=== PATIENT | male | born 1990 | race Caucasian/White ===

== ENCOUNTER 2023-08-28 13:18 | Inpatient (IN) | payer OTHER ==
[2023-08-28 13:48] VITALS: BMI 29.0
[2023-08-28] MEDS ORDERED: LOPERAMIDE HCL 2 MG CAPSULE PO PRN (14:49)
[2023-08-28] MEDS ORDERED: BISMUTH SUBSALICYLATE 524 MG/30 ML PO PRN (14:49)
[2023-08-28] MEDS ORDERED: MAGNESIUM HYDROX 2400MG/30ML ORAL SUSPENSION 30 ML CUP PO PRN (14:49)
[2023-08-28] MEDS ORDERED: IBUPROFEN 400 MG TABLET (FP) PO PRN (14:49)
[2023-08-28] MEDS ORDERED: guaiFENesin 600 MG TABLET.ER (FP) PO PRN (14:49)
[2023-08-28] MEDS ORDERED: BENZOCAINE/MENTHOL (CHLORASEPTIC ) LOZENGE MM PRN (14:49)
[2023-08-28] MEDS ORDERED: IBUPROFEN 600 MG TABLET (FP) PO PRN (14:49)
[2023-08-28] MEDS ORDERED: POLYETHYLENE GLYCOL (HEALTHYLAX) 3350 17 GM PACKET PO PRN (14:49)
[2023-08-28] MEDS ORDERED: DICYCLOMINE HCL 10 MG CAPSULE PO PRN (14:49)
[2023-08-28] MEDS ORDERED: chlordiazePOXIDE HCL 25 MG CAPSULE PO PRN (14:49)
[2023-08-28] MEDS ORDERED: MAG HYDROX/AL HYDROX/SIMETH 30 ML UNIT-DOSE CUP PO PRN (14:49)
[2023-08-28] MEDS ORDERED: NALOXONE HCL (KLOXXADO) 8 MG SPRAY NS PRN (14:49)
[2023-08-28] MEDS ORDERED: ONDANSETRON *ODT* 4 MG TABLET SL PRN (14:49)
[2023-08-28] MEDS ORDERED: NALOXONE HCL 0.4 MG/ML VIAL IM PRN (14:49)
[2023-08-28] MEDS ORDERED: ACETAMINOPHEN 325 MG TABLET (FP) PO PRN (14:49)
[2023-08-28] MEDS ORDERED: BENZONATATE 200 MG CAPSULE PO PRN (14:49)
[2023-08-28] MEDS: chlordiazePOXIDE HCL 25 MG CAPSULE PO SCH (19:07)
[2023-08-28] MEDS: THIAMINE 100 MG TABLET PO SCH (23:27)
[2023-08-28] MEDS: METHOCARBAMOL 500 MG TABLET PO PRN (23:27)
[2023-08-28] MEDS: MELATONIN 5 MG TABLETS PO SCH (23:34)
[2023-08-29] MEDS ORDERED: predniSONE 40 MG, predniSONE 10 MG PO SCH (10:00)
[2023-08-29] MEDS: predniSONE 10 MG TABLET (UD) PO SCH (10:45)
[2023-08-29] MEDS: NAPROXEN 500 MG TABLET PO SCH (10:45)
[2023-08-29] MEDS: PRENATAL VITAMINS W/ FOLIC ACID TABLET (FP) PO SCH (10:45)
[2023-08-29 11:03] LABS: CHLORIDE 107 mmol/L (98-107); POTASSIUM 3.8 mmol/L (3.5-5.1); SODIUM 139 mmol/L (136-145)
[2023-08-29 11:06] LABS: ALBUMIN 2.9 g/dl (3.4-5.0); ANION GAP 5 mmol/L (4-13); BLOOD UREA NITROGEN 14.3 mg/dL (7-18); CALCIUM 8.6 mg/dL (8.5-10.1); CO2 27 mmol/L (21-32)
[2023-08-29 11:07] LABS: GLUCOSE,RANDOM 155 mg/dL (74-106); HEMOGLOBIN 15.2 GM/dL (11.7-16.9); MCH 29.8 pg (25.7-33.7); MCHC 33.8 g/dl (32.0-35.9); MEAN CELL VOLUME 88.1 fl (80-96); MEAN PLT VOLUME 8.5 fl (7.5-11.1); PLATELET COUNT 199 10^3/uL (134-434); RBC 5.11 M/mm3 (4.00-5.60); RDW 13.4 % (11.9-15.9); WHITE BLOOD COUNT 6.7 K/mm3 (4.0-10.0)
[2023-08-29 11:09] LABS: SGOT/AST 10 U/L (15-37); SGPT/ALT 19 U/L (13-61)
[2023-08-29 11:11] LABS: BILIRUBIN,TOTAL 0.6 mg/dL (0.2-1); TOT PROT 5.6 g/dl (6.4-8.2)
[2023-08-29 11:12] LABS: ALK PHOS 49 U/L (45-117)
[2023-08-30] MEDS: chlordiazePOXIDE HCL 25 MG CAPSULE PO SCH (05:50)
[2023-08-30] MEDS: amLODIPine BESYLATE 5 MG TABLET (FP) PO SCH (10:58)
[2023-08-30] MEDS: hydrOXYzine PAMOATE 25 MG CAPSULE (FP) PO PRN (17:10)
[2023-08-31] MEDS: chlordiazePOXIDE HCL 10 MG CAPSULE PO SCH (05:35)
[2023-08-31] MEDS: chlordiazePOXIDE 5 MG CAPSULE PO SCH (18:29)
[2023-08-31] MEDS: chlordiazePOXIDE HCL 10 MG CAPSULE PO PRN (22:25)
[2023-09-01] MEDS: chlordiazePOXIDE HCL 10 MG CAPSULE PO SCH (05:53)
[2023-09-02] MEDS: chlordiazePOXIDE HCL 10 MG CAPSULE PO ONE (06:02)
[2023-09-02 09:11] VITALS: BP 113/62; PULSE 79; RESP 18; TEMP 98
[2023-09-02 14:27] LABS: HIV INTERPRETATION NEGATIVE (NEGATIVE)
== END 2023-09-02 10:01 | disposition home or self-care (01) | DRG 774 ==
LOC: YASAS 13:18 → Y6N 14:58
PROVIDERS: ADMIT Allergy & Immunology; ATTEND Surgery
PROC: HZ2ZZZZ Detoxification Services for Substance Abuse Treatment (ICD-10-PCS; principal; 2023-08-28)
DX: F10.230 Alcohol dependence with withdrawal, uncomplicated (principal); F14.20 Cocaine dependence, uncomplicated; F16.10 Hallucinogen abuse, uncomplicated; F12.20 Cannabis dependence, uncomplicated; F17.210 Nicotine dependence, cigarettes, uncomplicated; F31.9 Bipolar disorder, unspecified; F19.24 Other psychoactive substance dependence with psychoactive substance-induced mood disorder; I10 Essential (primary) hypertension; G58.8 Other specified mononeuropathies; Z86.59 Personal history of other mental and behavioral disorders; Z56.0 Unemployment, unspecified; Z59.02 Unsheltered homelessness
CPT/HCPCS: 36415; 73030-TC-LT-FY; 80053; 80305; 80307; 83036; 85027; 86780; 87389; 93005; 93010

== ENCOUNTER 2023-11-29 10:32 | Inpatient (IN) | payer OTHER ==
[2023-11-29 10:47] VITALS: BMI 29.2
[2023-11-29] MEDS ORDERED: BENZONATATE 200 MG CAPSULE PO PRN (11:13)
[2023-11-29] MEDS ORDERED: MAGNESIUM HYDROX 2400MG/30ML ORAL SUSPENSION 30 ML CUP PO PRN (11:13)
[2023-11-29] MEDS ORDERED: LOPERAMIDE HCL 2 MG CAPSULE PO PRN (11:13)
[2023-11-29] MEDS ORDERED: NICOTINE POLACRILEX 2 MG LOZENGE BC PRN (11:13)
[2023-11-29] MEDS ORDERED: IBUPROFEN 400 MG TABLET (FP) PO PRN (11:13)
[2023-11-29] MEDS ORDERED: MAG HYDROX/AL HYDROX/SIMETH 30 ML UNIT-DOSE CUP PO PRN (11:13)
[2023-11-29] MEDS ORDERED: BENZOCAINE/MENTHOL (CHLORASEPTIC ) LOZENGE MM PRN (11:13)
[2023-11-29] MEDS ORDERED: IBUPROFEN 600 MG TABLET (FP) PO PRN (11:13)
[2023-11-29] MEDS ORDERED: POLYETHYLENE GLYCOL (HEALTHYLAX) 3350 17 GM PACKET PO PRN (11:13)
[2023-11-29] MEDS ORDERED: guaiFENesin 600 MG TABLET.ER (FP) PO PRN (11:13)
[2023-11-29] MEDS ORDERED: NICOTINE POLACRILEX 2 MG GUM BUC PRN (11:13)
[2023-11-29] MEDS ORDERED: TUBERCULIN PPD 5 TU/0.1ML VIAL ID ONE (12:45)
[2023-11-29] MEDS: THIAMINE 100 MG TABLET PO SCH (22:25)
[2023-11-29] MEDS: MELATONIN 5 MG TABLETS PO SCH (22:25)
[2023-11-30] MEDS: PRENATAL VITAMINS W/ FOLIC ACID TABLET (FP) PO SCH (10:36)
[2023-11-30 11:52] LABS: PH,URINE 6.5 (5.0-8.0); URINE APPEARANCE CLEAR; URINE BILIRUBIN NEGATIVE (NEGATIVE); URINE COLOR YELLOW; URINE GLUCOSE (UA) NEGATIVE (NEGATIVE); URINE KETONE NEGATIVE (NEGATIVE); URINE LEUK ESTERASE NEGATIVE (NEGATIVE); URINE NITRITE NEGATIVE (NEGATIVE); URINE PROTEIN NEGATIVE (NEGATIVE); URINE UROBILINOGEN 0.2 mg/dL (0.2-1.0)
[2023-11-30 11:54] LABS: HEMATOCRIT 46.4 % (35.4-49); HEMOGLOBIN 15.9 GM/dL (11.7-16.9); MCH 30.4 pg (25.7-33.7); MCHC 34.2 g/dl (32.0-35.9); MEAN CELL VOLUME 88.9 fl (80-96); MEAN PLT VOLUME 9.1 fl (7.5-11.1); PLATELET COUNT 244 10^3/uL (134-434); RBC 5.22 M/mm3 (4.00-5.60); RDW 13.7 % (11.9-15.9); WHITE BLOOD COUNT 6.3 K/mm3 (4.0-10.0)
[2023-11-30 12:17] LABS: POTASSIUM 4.3 mmol/L (3.5-5.1)
[2023-11-30 12:28] LABS: SYPHILIS W/ RPR CONF NON-REACTIVE (NONREACTIVE)
[2023-11-30 12:42] LABS: ALBUMIN 3.8 g/dl (3.4-5.0); CALCIUM 9.2 mg/dL (8.5-10.1)
[2023-11-30 12:43] LABS: BLOOD UREA NITROGEN 18.6 mg/dL (7-18)
[2023-11-30 12:47] LABS: BILIRUBIN,TOTAL 0.5 mg/dL (0.2-1); TOT PROT 6.8 g/dl (6.4-8.2)
[2023-12-02] MEDS: hydrOXYzine PAMOATE 25 MG CAPSULE (FP) PO PRN (21:30)
[2023-12-07] MEDS: PRENATAL VITAMINS W/ FOLIC ACID TABLET (FP) PO PRN (06:33)
[2023-12-09] MEDS: P-EPHED 60MG/TRIPROLIDI 2.5MG TABLET PO PRN (10:24)
[2023-12-11] MEDS: ACETAMINOPHEN 325 MG TABLET (FP) PO PRN (20:06)
[2023-12-13 06:40] VITALS: BP 115/75; PULSE 99; RESP 18; TEMP 97.7
== END 2023-12-13 13:11 | disposition home or self-care (01) | DRG 772 ==
LOC: YASAS 10:32 → Y3NR 11:24 → Y3W 12:29
PROVIDERS: ADMIT Allergy & Immunology; ATTEND Psychiatry & Neurology Pain Medicine
PROC: HZ42ZZZ Group Counseling for Substance Abuse Treatment, Cognitive-Behavioral (ICD-10-PCS; principal; 2023-11-29)
DX: F10.20 Alcohol dependence, uncomplicated (principal); F14.20 Cocaine dependence, uncomplicated; F12.20 Cannabis dependence, uncomplicated; F16.10 Hallucinogen abuse, uncomplicated; F31.9 Bipolar disorder, unspecified; F19.94 Other psychoactive substance use, unspecified with psychoactive substance-induced mood disorder; I10 Essential (primary) hypertension; R73.03 Prediabetes; R01.1 Cardiac murmur, unspecified; Z91.148 Patient's other noncompliance with medication regimen for other reason; Z56.0 Unemployment, unspecified
CPT/HCPCS: 36415; 71045-TC-FY; 80053; 80305; 80307; 81003; 85027; 86780; 86803; 87811; 93005; 93010

== ENCOUNTER 2024-05-08 14:35 | Inpatient (IN) | payer OTHER ==
[2024-05-08 15:15] VITALS: BMI 26.4
[2024-05-08] MEDS ORDERED: IBUPROFEN 400 MG TABLET (FP) PO PRN (15:33)
[2024-05-08] MEDS ORDERED: LOPERAMIDE HCL 2 MG CAPSULE PO PRN (15:33)
[2024-05-08] MEDS ORDERED: BISMUTH SUBSALICYLATE 524 MG/30 ML PO PRN (15:33)
[2024-05-08] MEDS ORDERED: ONDANSETRON *ODT* 4 MG TABLET SL PRN (15:33)
[2024-05-08] MEDS ORDERED: guaiFENesin 600 MG TABLET.ER (FP) PO PRN (15:33)
[2024-05-08] MEDS ORDERED: MAGNESIUM HYDROX 2400MG/30ML ORAL SUSPENSION 30 ML CUP PO PRN (15:33)
[2024-05-08] MEDS ORDERED: BENZONATATE 200 MG CAPSULE PO PRN (15:33)
[2024-05-08] MEDS ORDERED: ACETAMINOPHEN 325 MG TABLET (FP) PO PRN (15:33)
[2024-05-08] MEDS ORDERED: DICYCLOMINE HCL 10 MG CAPSULE PO PRN (15:33)
[2024-05-08] MEDS ORDERED: MAG HYDROX/AL HYDROX/SIMETH 30 ML UNIT-DOSE CUP PO PRN (15:33)
[2024-05-08] MEDS ORDERED: BENZOCAINE/MENTHOL (CHLORASEPTIC ) LOZENGE MM PRN (15:33)
[2024-05-08] MEDS ORDERED: NALOXONE (NARCAN) HCL 4 MG/0.1 ML SPRAY NS PRN (15:33)
[2024-05-08] MEDS ORDERED: POLYETHYLENE GLYCOL (HEALTHYLAX) 3350 17 GM PACKET PO PRN (15:33)
[2024-05-08] MEDS ORDERED: NICOTINE POLACRILEX 2 MG GUM BUC PRN (15:33)
[2024-05-08] MEDS ORDERED: methaDONE HCL 10 MG TABLET (FOR DETOX USE ONLY) PO PRN (15:33)
[2024-05-08] MEDS ORDERED: methaDONE HCL 10 MG TABLET (FOR DETOX USE ONLY) PO ONE (16:00)
[2024-05-08] MEDS: methaDONE HCL 10 MG TABLET (FOR DETOX USE ONLY) PO ONE (18:54)
[2024-05-08] MEDS: cloNIDine HCL 0.1 MG TABLET PO PRN (22:54)
[2024-05-08] MEDS: MELATONIN 5 MG TABLETS PO SCH (22:54)
[2024-05-08] MEDS: THIAMINE 100 MG TABLET PO SCH (22:54)
[2024-05-08] MEDS: METHOCARBAMOL 500 MG TABLET PO PRN (22:56)
[2024-05-09] MEDS: NICOTINE 14 MG/24 HOURS TOPICAL PATCH TD SCH (09:24)
[2024-05-09] MEDS: PRENATAL VITAMINS W/ FOLIC ACID TABLET (FP) PO SCH (09:27)
[2024-05-09 12:18] LABS: HEMOGLOBIN 14.4 GM/dL (11.7-16.9); MCH 29.1 pg (25.7-33.7); MCHC 32.9 g/dl (32.0-35.9); MEAN CELL VOLUME 88.6 fl (80-96); MEAN PLT VOLUME 8.3 fl (7.5-11.1); PLATELET COUNT 221 10^3/uL (134-434); RBC 4.96 M/mm3 (4.00-5.60); RDW 13.3 % (11.9-15.9)
[2024-05-09 12:21] LABS: CHLORIDE 105 mmol/L (98-107); POTASSIUM 3.9 mmol/L (3.5-5.1); SODIUM 139 mmol/L (136-145)
[2024-05-09 12:27] LABS: CALCIUM 8.4 mg/dL (8.5-10.1)
[2024-05-09 12:28] LABS: ALBUMIN 3.2 g/dl (3.4-5.0); ANION GAP 7 mmol/L (4-13); BLOOD UREA NITROGEN 21.8 mg/dL (7-18); CO2 27 mmol/L (21-32); GLUCOSE,RANDOM 119 mg/dL (74-106)
[2024-05-09 12:30] LABS: SGOT/AST 28 U/L (15-37)
[2024-05-09 12:32] LABS: BILIRUBIN,TOTAL 0.4 mg/dL (0.2-1); SGPT/ALT 21 U/L (13-61)
[2024-05-09 12:33] LABS: ALK PHOS 61 U/L (45-117)
[2024-05-09] MEDS: IBUPROFEN 600 MG TABLET (FP) PO PRN (12:46)
[2024-05-09] MEDS: LIDOCAINE 5% TOPICAL PATCH TP SCH (13:52)
[2024-05-09] MEDS: hydrOXYzine PAMOATE 25 MG CAPSULE (FP) PO PRN (17:04)
[2024-05-09] MEDS: QUEtiapine FUMARATE 100 MG TABLET (FP) PO SCH (22:17)
[2024-05-09] MEDS: LIDOCAINE PATCH REMOVAL MC SCH (22:17)
[2024-05-10] MEDS: methaDONE HCL 10 MG TABLET (FOR DETOX USE ONLY) PO ONE (10:36)
[2024-05-10] MEDS: LIDOCAINE 5% TOPICAL PATCH TP SCH (13:00)
[2024-05-10] MEDS ORDERED: LIDOCAINE 5% TOPICAL PATCH TP SCH (13:18)
[2024-05-10] MEDS: LIDOCAINE 5% TOPICAL PATCH TP ONE (14:26)
[2024-05-10] MEDS: LIDOCAINE PATCH REMOVAL MC SCH ×2 (22:29)
[2024-05-10] MEDS: METHYL SALICYLATE/MENTHOL 30 GM TUBE TP SCH (22:31)
[2024-05-11] MEDS: diazePAM 5 MG TABLET PO PRN (10:14)
[2024-05-11] MEDS: LIDOCAINE 5% TOPICAL PATCH TP SCH ×2 (10:18→10:19)
[2024-05-12] MEDS ORDERED: methaDONE HCL 10 MG TABLET (FOR DETOX USE ONLY) PO ONE (10:00)
[2024-05-12] MEDS: methaDONE HCL 10 MG TABLET (FOR DETOX USE ONLY) PO ONE (11:20)
[2024-05-13 09:50] VITALS: BP 145/74; PULSE 87; RESP 18; TEMP 98
[2024-05-13] MEDS: methaDONE HCL 10 MG TABLET PO ONE (10:41)
[2024-05-13] MEDS: NALOXONE (NYS OPIOID OVERDOSE PROGRAM) 4 MG/0.1 ML SPRAY NS SCH (12:10)
== END 2024-05-13 12:15 | disposition home or self-care (01) | DRG 773 ==
LOC: YASAS 14:35 → Y6N 17:39
PROVIDERS: ADMIT Allergy & Immunology; ATTEND Allergy & Immunology
PROC: HZ2ZZZZ Detoxification Services for Substance Abuse Treatment (ICD-10-PCS; principal; 2024-05-08)
DX: F11.23 Opioid dependence with withdrawal (principal); F14.20 Cocaine dependence, uncomplicated; F12.20 Cannabis dependence, uncomplicated; F17.210 Nicotine dependence, cigarettes, uncomplicated; F31.9 Bipolar disorder, unspecified; I10 Essential (primary) hypertension; E11.9 Type 2 diabetes mellitus without complications; Z59.00 Homelessness unspecified
CPT/HCPCS: 36415; 71045-TC-FY; 80053; 80305; 80307; 85027; 86780; 93005; 93010

== ENCOUNTER 2024-07-16 14:15 | Inpatient (IN) | payer OTHER ==
[2024-07-16 14:29] VITALS: BMI 28.3
[2024-07-16] MEDS ORDERED: METHOCARBAMOL 500 MG TABLET PO PRN (14:48)
[2024-07-16] MEDS ORDERED: hydrOXYzine PAMOATE 25 MG CAPSULE (FP) PO PRN (14:48)
[2024-07-16] MEDS ORDERED: BISMUTH SUBSALICYLATE 524 MG/30 ML PO PRN (14:48)
[2024-07-16] MEDS ORDERED: LOPERAMIDE HCL 2 MG CAPSULE PO PRN (14:48)
[2024-07-16] MEDS ORDERED: IBUPROFEN 600 MG TABLET (FP) PO PRN (14:48)
[2024-07-16] MEDS ORDERED: BENZONATATE 200 MG CAPSULE PO PRN (14:48)
[2024-07-16] MEDS ORDERED: POLYETHYLENE GLYCOL (HEALTHYLAX) 3350 17 GM PACKET PO PRN (14:48)
[2024-07-16] MEDS ORDERED: IBUPROFEN 400 MG TABLET (FP) PO PRN (14:48)
[2024-07-16] MEDS ORDERED: NALOXONE (NARCAN) HCL 4 MG/0.1 ML SPRAY NS PRN (14:48)
[2024-07-16] MEDS ORDERED: MAGNESIUM HYDROX 2400MG/30ML ORAL SUSPENSION 30 ML CUP PO PRN (14:48)
[2024-07-16] MEDS ORDERED: DICYCLOMINE HCL 10 MG CAPSULE PO PRN (14:48)
[2024-07-16] MEDS ORDERED: ACETAMINOPHEN 325 MG TABLET (FP) PO PRN (14:48)
[2024-07-16] MEDS ORDERED: ONDANSETRON *ODT* 4 MG TABLET SL PRN (14:48)
[2024-07-16] MEDS ORDERED: MAG HYDROX/AL HYDROX/SIMETH 30 ML UNIT-DOSE CUP PO PRN (14:48)
[2024-07-16] MEDS ORDERED: guaiFENesin 600 MG TABLET.ER (FP) PO PRN (14:48)
[2024-07-16] MEDS ORDERED: BENZOCAINE/MENTHOL (CHLORASEPTIC ) LOZENGE MM PRN (14:48)
[2024-07-16] MEDS: THIAMINE 100 MG TABLET PO SCH (22:35)
[2024-07-16] MEDS: MELATONIN 5 MG TABLETS PO SCH (22:35)
[2024-07-17 06:54] VITALS: RESP 16
[2024-07-17 08:59] VITALS: BP 139/82; PULSE 69; TEMP 97.8
[2024-07-17] MEDS: PRENATAL VITAMINS W/ FOLIC ACID TABLET (FP) PO SCH (10:10)
[2024-07-17] MEDS: FLU VACCINE (FLULAVAL) PF 45 MCG/0.5 ML SYRINGE 2024-2025 IM ONE (12:55)
[2024-07-17 15:53] LABS: HEMATOCRIT 41.9 % (35.4-49); HEMOGLOBIN 14.2 GM/dL (11.7-16.9); MCH 29.3 pg (25.7-33.7); MCHC 33.9 g/dl (32.0-35.9); MEAN CELL VOLUME 86.4 fl (80-96); MEAN PLT VOLUME 8.3 fl (7.5-11.1); PLATELET COUNT 201 10^3/uL (134-434); RBC 4.85 M/mm3 (4.00-5.60); RDW 14.2 % (11.9-15.9); WHITE BLOOD COUNT 6.2 K/mm3 (4.0-10.0)
[2024-07-17 16:04] LABS: CHLORIDE 107 mmol/L (98-107); POTASSIUM 4.4 mmol/L (3.5-5.1); SODIUM 141 mmol/L (136-145)
[2024-07-17 16:07] LABS: CALCIUM 8.9 mg/dL (8.5-10.1)
[2024-07-17 16:08] LABS: ALBUMIN 3.4 g/dl (3.4-5.0); ANION GAP 6 mmol/L (4-13); BLOOD UREA NITROGEN 14.1 mg/dL (7-18); CO2 29 mmol/L (21-32); GLUCOSE,RANDOM 110 mg/dL (74-106)
[2024-07-17 16:11] LABS: CREATININE 0.9 mg/dL (0.55-1.3); SGOT/AST 13 U/L (15-37); SGPT/ALT 19 U/L (13-61)
[2024-07-17 16:12] LABS: BILIRUBIN,TOTAL 0.5 mg/dL (0.2-1)
[2024-07-17 16:13] LABS: ALK PHOS 56 U/L (45-117); TOT PROT 6.2 g/dl (6.4-8.2)
[2024-07-17 17:01] LABS: HIV INTERPRETATION NEGATIVE (NEGATIVE)
== END 2024-07-17 13:40 | disposition home or self-care (01) | DRG 774 ==
LOC: YASAS 14:15 → Y6N 15:32
PROVIDERS: ADMIT Allergy & Immunology; ATTEND Allergy & Immunology
PROC: HZ2ZZZZ Detoxification Services for Substance Abuse Treatment (ICD-10-PCS; principal; 2024-07-16)
DX: F10.20 Alcohol dependence, uncomplicated (principal); F14.20 Cocaine dependence, uncomplicated; F16.20 Hallucinogen dependence, uncomplicated; F12.20 Cannabis dependence, uncomplicated; F17.210 Nicotine dependence, cigarettes, uncomplicated; I10 Essential (primary) hypertension; E11.9 Type 2 diabetes mellitus without complications; Z79.84 Long term (current) use of oral hypoglycemic drugs; Z59.00 Homelessness unspecified
CPT/HCPCS: 36415; 80053; 80305; 80307; 85027; 86780; 87389